=== PATIENT | female | born 2000 | race African-American/Black ===

== ENCOUNTER 2022-12-23 08:20 | Emergency (ER) | payer OTHER ==
[~2022-12-23] VITALS: Ht 170.2 cm; Wt 104.3 kg
[2022-12-23 08:20] VITALS: BP 164/82
--- NOTE | 2022-12-23 08:20 | NUR ---
[facility] TO ER BED 5
--- NOTE | 2022-12-23 08:25 | NUR ---
[place] [facility] AT BEDSIDE
--- NOTE | 2022-12-23 08:41 | NUR ---
MD MARTINEZ AT BEDSIDE FOR EVALUATION
--- NOTE | 2022-12-23 08:45 | NUR ---
22YO FEMALE PT BIBA HOME ON 5150 - DTS. PT PLACED ON HOLD BY MARYBEL MILLER WHO FOUND PT OUTSIDE "YELLING FOR HELP".[place] [facility], PT STATED AUDITORY AND VISUAL HALLUCINATIONS. STATE PT BROTHER REPORTS PREVIOUS S/S EPISODES AND BELIEVES IS D/T SCHIZO OR BIPOLAR. AT ARRIVAL, PT AAOX4 LAUGHING AND STATING "IM JUST TIRED". REPORTS DRINKING 3-4 [employer] DAILY FOR THE PAST WEEK W/O SLEEP OR REST. DENIES SI ,CHEST PAIN, SOB OR HALLUCINATIONS AT THIS TIME. ROOM STRIPPED OF POTENTIAL HARMFUL ITEMS. PT IN GOWN AND ON DRAFTING TECHNICIAN. HX:ASTHMA NKA 5150-DTS PLACED ON 12/23/22 @0659 BY MARYBEL PAVON
[2022-12-23] MEDS ORDERED: LORazepam 1 MG TAB PO ONE ×2 (08:50→11:05)
[2022-12-23 09:09] LABS: BASOPHILS % (AUTO) 0.2 % (0.0-2.0); EOSINOPHILS % (AUTO) 0.4 % (0.0-4.0); HEMATOCRIT 41.6 % (36-48); HEMOGLOBIN 13.9 g/dL (12.0-16.0); LYMPHOCYTES % (AUTO) 11.5 % (20.5-51.1); MEAN CORPUSCULAR HEMOGLOBIN 30 pg (27-31); MEAN CORPUSCULAR HGB CONC 33 g/dL (33-37); MEAN CORPUSCULAR VOLUME 89.7 fL (80-94); MONOCYTES # (AUTO) 0.6 K/uL (0.8-1.0); MONOCYTES % (AUTO) 6.3 % (1.7-9.3); NEUTROPHILS # (AUTO) 7.2 K/uL (1.8-7.7); NEUTROPHILS % (AUTO) 81.6 % (42.2-75.2); PLATELET COUNT (AUTO) 212 K/uL (140-450); RED BLOOD CELL COUNT(AUTO) 4.64 MIL/uL (4.20-5.40); WHITE BLOOD COUNT (AUTO) 8.8 K/uL (4.8-10.8)
[2022-12-23 09:51] LABS: BILIRUBIN,URINE 1+ (NEGATIVE); BLOOD, URINE 1+ (NEGATIVE); COLOR,URINE YELLOW (YELLOW); LEUKOCYTE ESTERASE ,URINE TRACE (NEGATIVE); NITRITE, URINE NEGATIVE (NEGATIVE); UGLUCOSE NEGATIVE (NEGATIVE)
[2022-12-23 10:17] LABS: APPEARANCE,URINE SLIGHTLY CLOUDY (CLEAR); RBC,URINE 11-20 (MOD) /HPF (0-5)
[2022-12-23 10:22] LABS: ANION GAP 15.4 (8-16); ASPARTATE AMINOTRANSFERASE 24 U/L (15-37); CARBON DIOXIDE 23.2 mmol/L (21-32); CHLORIDE 104 mmol/L (98-107); CREATININE 0.9 mg/dL (0.6-1.3); GFR ARICAN-AMERICAN 99 mL/min (>90); GLUCOSE 112 mg/dL (74-106); POTASSIUM 3.6 mmol/L (3.5-5.1); SODIUM SERUM 139 mmol/L (136-145); TOTAL BILIRUBIN 1.3 mg/dL (0.0-1.0); UREA NITROGEN, BLOOD 8 mg/dL (7-18)
[2022-12-23 10:28] LABS: ACETAMINOPHEN < 0.5 ug/ml (10-30); SALICYLATE < 2.8 mg/dL (2.8-20.0)
[2022-12-23 10:36] LABS: BARBITURATE, URINE NEGATIVE ng/ml (NEG <=200); BENZODIAZEPINE, URINE NEGATIVE ng/mL (NEG <=200); CANNABINOID, URINE POSITIVE ng/mL (NEG <=50); COCAINE, URINE NEGATIVE ng/mL (NEG <=300); OPIATE, URINE NEGATIVE ng/mL (NEG <=2000); PHENCYCLIDINE SCREEN,URINE NEGATIVE ng/mL (NEG <=25)
[2022-12-23] MEDS ORDERED: LORazepam 1 MG TAB ONE (11:07)
--- NOTE | 2022-12-23 11:15 | NUR ---
PT RESTLESS "IM LOSING MY MIND" AND ATTEMPTING TO LEAVE BED. PT REDIRECTED TO BED. ERMD MADE AWARE.
[2022-12-23] MEDS ORDERED: ZIPRASIDONE MESYLATE 20 MG/ML VIAL IM ONE ×2 (11:19→11:20)
[2022-12-23] MEDS ORDERED: WATER STERILE 10 ML MC ONE (11:20)
--- NOTE | 2022-12-23 13:40 | NUR ---
PT MEDICALLY CLEARED PER MD MARTINEZ
--- NOTE | 2022-12-23 14:06 | NUR ---
SPOKE W/ KAHLIL GUERRA. PENDING BED ASSIGNMENT
--- NOTE | 2022-12-23 16:20 | NUR ---
CALL RECEIVED FROM [facility]. INTAKE AND UPDATE GIVEN. SPOKE W/ NIKKI
--- NOTE | 2022-12-23 16:45 | NUR ---
pt awake . states "feeling better" . on media monitor. hob positioned per comfort
--- NOTE | 2022-12-23 17:21 | NUR ---
BROTHER AT BEDSIDE
--- NOTE | 2022-12-23 18:00 | NUR ---
pt offered dinner -"not right now". left at bedside
[2022-12-23 18:33] VITALS: BP 121/73
--- NOTE | 2022-12-23 19:21 | NUR ---
REPORT GIVEN TO JACKIE GUARDADO. TRANSFER OF CARE AT THIS TIME
--- NOTE | 2022-12-23 19:30 | NUR ---
[facility] bedside for transport of pt
--- NOTE | 2022-12-23 19:37 | NUR ---
Patient to be transferred to [facility]. Is being transferred due to higher level of care. Receiving facility has accepting physician and available space. ER physician has signed transfer form. Patient or responsible constitution party has agreed to transfer and signed form. Patient belongings inventoried and will be sent with patient. Copy of nursing notes, lab reports, EKG, Physicians Orders and X-rays to be sent with patient. Report called to Hannah at receiving facility. [facility] ambulance service has been called for transfer. ETA is 30 min.
== END 2022-12-23 19:37 ==
LOC: MED 08:20
DX: F23 Brief psychotic disorder (principal); Z20.822 Contact with and (suspected) exposure to COVID-19; R00.0 Tachycardia, unspecified; F41.9 Anxiety disorder, unspecified; F12.90 Cannabis use, unspecified, uncomplicated
CPT/HCPCS: 36415; 80053; 80305; 81001; 81003; 81025; 85025; 87086; 87426; 87635; 93005; 96372; 99285; C9803; G0480; G0482; J3486; U0005

== ENCOUNTER 2024-01-04 23:15 | Emergency (ER) | payer OTHER ==
[~2024-01-04] VITALS: Ht 170.2 cm; Wt 97.5 kg
[2024-01-04 23:21] VITALS: BP 142/86; PULSE 98; RESP 16; TEMP 97.9; O2SAT 99
[2024-01-05 00:40] LABS: BASOPHILS % (AUTO) 0.3 % (0.0-2.0); EOSINOPHILS # (AUTO) 0.1 K/uL (0-0.4); EOSINOPHILS % (AUTO) 0.9 % (0.0-4.0); HEMATOCRIT 40.6 % (36-48); HEMOGLOBIN 13.5 g/dL (12.0-16.0); LYMPHOCYTES # (AUTO) 1.9 K/uL (2.5-16.5); LYMPHOCYTES % (AUTO) 17.1 % (20.5-51.1); MEAN CORPUSCULAR HEMOGLOBIN 30 pg (27-31); MEAN CORPUSCULAR HGB CONC 33 g/dL (33-37); MEAN CORPUSCULAR VOLUME 90.5 fL (80-94); MONOCYTES # (AUTO) 0.7 K/uL (0.8-1.0); MONOCYTES % (AUTO) 5.9 % (1.7-9.3); NEUTROPHILS # (AUTO) 8.5 K/uL (1.8-7.7); NEUTROPHILS % (AUTO) 75.8 % (42.2-75.2); PLATELET COUNT (AUTO) 275 K/uL (140-450); RED BLOOD CELL COUNT(AUTO) 4.49 MIL/uL (4.20-5.40); RED CELL DISTRIBUTION WIDTH 14.5 % (11.6-13.7); WHITE BLOOD COUNT (AUTO) 11.3 K/uL (4.8-10.8)
[2024-01-05] MEDS: NACL 0.9% 1,000 ML IV ONE (00:45)
[2024-01-05 00:55] LABS: ANION GAP 13.5 (8-16); CALCIUM 10.7 mg/dL (8.5-10.1); CREATININE 0.8 mg/dL (0.6-1.3); POTASSIUM 3.5 mmol/L (3.5-5.1)
[2024-01-05] MEDS ORDERED: OXYM20SP1 NS (03:00)
[2024-01-05] MEDS ORDERED: PSEU-250 PO (03:00)
[2024-01-05] MEDS ORDERED: AMOX-1230 PO (03:00)
[2024-01-05 03:20] VITALS: BP 125/63; PULSE 85; RESP 14; TEMP 98.1; O2SAT 99
== END 2024-01-05 03:20 | disposition home or self-care (01) ==
LOC: MED 23:15
DX: S02.2XXA Fracture of nasal bones, initial encounter for closed fracture (principal); R55 Syncope and collapse; Z79.899 Other long term (current) drug therapy; X58.XXXA Exposure to other specified factors, initial encounter; Y93.89 Activity, other specified; Y92.89 Other specified places as the place of occurrence of the external cause; Y99.8 Other external cause status
CPT/HCPCS: 36415; 70450; 70486; 72125; 80048; 84484; 84702; 85025; 93005; 96360; 99284